=== PATIENT | female | born 1990 | race Hispanic/Latino ===

== ENCOUNTER 2016-11-06 13:13 | Inpatient (IN) | payer OTHER ==
[2016-11-06] MEDS ORDERED: LACTATED RINGERS 500 ML IV ONE (13:36)
--- NOTE | 2016-11-06 15:47 | History and Physical Report ---
History of Present Illness Date of examination: 11/06/16 Date of admission: 11/06/16 13:14 Chief complaint: my water broke History of present illness: 26 yo G1 at 35 wk 6d admitted with gross SROM at 1130and a few ctx. Followed with no problems in this except prior dx of Narcolepsy on Ritalin which she stopped taking in the first trimester. Known GBS neg, O pos, Rub Imm. She was doing a 24 hr urine for mildly elevated BP in the office and realized that she was leaking too much involuntary fluid. Remainder of H&P from [facility] and confirmed today. OB Intake Ethnicity: Scientology: NONE Occupation: [employer] Father of baby: Mahendra Mcneil FOB contact #: [phone] Vital Signs Height: 69.5 in. Weight (lb): 149 BMI: 21.7 BP: 122/ 70 mm Hg Ur. Protein: Negative Ur. Glucose: Negative Chief Complaint/Current Status: pt presents for missed period; c/o nausea..tward Last pap-02/2014 per pt...tward Menstrual History Regularity: regular Menses every: 28 days Duration: 5 LMP: 02/29/2016 LMP reliability: definite LMP character: normal test type: urine test Date: 04/28/2016 BC at conception: none Planned ? yes EDC Calculations LMP: 12/05/2016 EDC Confirmation: 12/05/2016 Gestational Age: 8 3/7 weeks Past History : 1 Para: 0 Past Medical History: Narcolepsy - taking Ritalin x3 years no seizures Migraines Sleep apnea Past Surgical History: Tonsillectomy - childhood Uvula removal - 2013 for sleep apnea Past Medical History Surgery (Non-cashier general): Tonsillectomy - childhood Uvula removal - 2013 for sleep apnea Abnormal PAP: negative MELISSA Exposure: negative Infertility: negative Uterine Anomaly: negative Uterine Surgery (not C/S): negative Other Gynecologic Problems: negative Family Hx: Type 2 DM - paternal grandfather Lung cancer - paternal grandmother Infection History Hx of STD: none HIV Risk Eval: low risk Hepatitis B Risk Eval: low risk Personal hx. of genital herpes: no Partner hx. of genital herpes: no Rash, Viral, or Febrile illness since last LMP? no Varicella/Chicken Pox Status: Previous Disease TB Risk: no Genetic History Congenital Heart Defect: Mom: no Dad: no Yodit Disease: Mom: no Dad: no Thalassemia Mom: no Dad: no Neural Tube Defect Mom: no Dad: no Down's Syndrome Mom: no Dad: no Macario-Sachs Mom: no Dad: no Sickle Cell Disease/Trait Mom: no Dad: no Hemophilia Mom: no Dad: no Muscular Dystrophy Mom: no Dad: no Cystic Fibrosis Mom: no Dad: no Mario Chorea Mom: no Dad: no Mental Retardation Mom: no Dad: no Fragile X Mom: no Dad: no Other Genetic/Chromosomal Disorder Mom: no Dad: no Child w/other defect Mom: no Dad: no Enviromental Exposures Xray Exposure: yes Medication, drug, or alcohol use since LMP: no Chemical/Other Exposure: yes Exposure to Cat Liter: yes Hx of Parvovirus (Fifth Disease): no Occupational Exposure to Children: none Comments: 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 Denies nausea, vomiting, headache, swelling of legs, abdominal pain, vaginal discharge, vaginal bleeding and contractions. Denies vaginal discharge, incontinence, dysuria, hematuria, urinary frequency, amenorrhea, menorrhagia, abnormal vaginal bleeding, pelvic pain, genital sores, decreased libido, painful periods, painful sex, urinary urgency, hot flashes, vaginal dryness, vaginal itching and vaginal odor. CV Denies chest pains, palpitations, syncope, dyspnea on exertion, orthopnea, PND and peripheral edema. Resp Denies cough, dyspnea at rest, excessive sputum, hemoptysis, wheezing and pleurisy. GI Denies nausea, vomiting, diarrhea, constipation, change in bowel habits, abdominal pain, melena, hematochezia, jaundice, gas/bloating, indigestion/ heartburn, dysphagia and odynophagia. Endo Denies cold intolerance, heat intolerance, polydipsia, polyphagia, polyuria and unusual weight change. Breast Denies left breast lump, right breast lump, nipple discharge, bloody discharge from nipple, breast pain, abnormal mammogram and breast enlargement. MS Denies back pain, joint pain, joint swelling, muscle cramps, muscle weakness, stiffness, arthritis, sciatica, restless legs, leg pain at night and leg pain with exertion. Derm Denies rash, itching, dryness and suspicious lesions. Neuro Denies paralysis, paresthesias, headache, seizures, tremors, vertigo, transient blindness, frequent falls, frequent headaches and difficulty walking. Psych Denies depression, anxiety, irritability and mood swings. Eyes Denies blurring, diplopia, irritation, discharge, vision loss, eye pain and photophobia. ENT Denies earache, ear discharge, tinnitus, decreased hearing, nasal congestion, nosebleeds, sore throat and hoarseness. Allergy Denies urticaria, allergic rash, hay fever and recurrent infections. Heme Denies abnormal bruising, bleeding and enlarged lymph nodes. PHYSICAL EXAM HEENT: PERRLA, normal conjunctiva, external nose and nasal mucosa normal, oropharynx clear Neck/Thyroid: supple, thyroid normal Skin no significant abnormal lesions or rashes Chest: respiratory effort normal, clear to auscultation Breasts: normal without skin changes or masses CV: regular, normal S1-S2, no murmur, no rub, no gallop Abdomen: normal bowel sounds, soft, nontender, no HSM Musculoskeletal: grossly normal ROM in joints, no joint tenderness or muscle weakness Neuro: grossly normal DTRs, sensation, strength, cranial nerves Extremities: no clubbing, cyanosis, or edema Flowsheet View for Follow-up Visit Estimated weeks of gestation: 8 10/04 Weight: 149 Blood pressure: 122 / 70 Urine protein: Negative Urine glucose: Negative Urine nitrite: negative Education Provided: 1) Education provided today and information packet given. 2) Education packet given; please call if you have any questions. 3) Review normal weight gain and proper nutrition during . 4) Advice on healthy diet for reviewed and information provided. 5) Stressed importance of taking folic acid and vitamins. 6) Advised to avoid intimate contact with cats, avoid cat litter, and the ingestion of raw meat. 7) Handout given on potential environmental and work hazards. 8) Patient Will deliver at [facility]. 9) Normal spontaneous vaginal delivery () anticipated at this time. 10) Influenza vaccine Recommended. Impression & Recommendations: Problem # 1: Other specified irregular menstruation ([id number]) Problem # 2: Narcolepsy with cataplexy (ICD-347.01) (SIG04-T49.411) Orders: Past History - Obstetrical History : 1 Medications and Allergies Allergies Allergy/AdvReac Type Severity Reaction Status Date / Time No Known Allergies Allergy Unverified 11/06/16 13:35 Active Meds: Active Medications Betamethasone Acet/Betameth SodPhos (Celestone Soluspan) 12 mg IM ONCE ONE Stop: 11/06/16 15:26 Butorphanol Tartrate (Stadol) 2 mg IV Q2H PRN PRN Reason: Pain , Severe (7-10) Ephedrine Sulfate (Ephedrine Sulfate) 10 mg IV Q2M PRN PRN Reason: Hypotension Stop: 11/06/16 15:23 Lactated Ringer's (Lactated Ringers) 1,000 mls @ 125 mls/hr IV DIRECT ANABEL Oxytocin/Sodium Chloride (Pitocin/Ns 20 Unit/1000ml Drip) 20 units in 1,000 mls @ 125 mls/hr IV DIRECT ANABEL Oxytocin/Sodium Chloride (Pitocin/Ns 30 Unit/500ml) 30 units in 500 mls @ 0 mls /hr IV TITR ANABEL; Per Protocol PRN Reason: Protocol Oxytocin/Sodium Chloride (Pitocin/Ns 30 Unit/500ml) 30 units in 500 mls @ 1 mls /hr IV TITR ANABEL; 1 MILLIUNITS/MIN PRN Reason: Protocol Lidocaine (Xylocaine 2%) 20 ml INFILTRATI ONCE ONE Stop: 11/06/16 15:19 Mineral Oil (Mineral Oil) 30 ml PO QHS PRN PRN Reason: Constipation Naloxone HCl (Narcan 0.4 Mg/1 Ml) 0.1 mg IV Q2MIN PRN PRN Reason: Res Rate </= 8 or 02 SAT < 92% Ondansetron HCl (Zofran) 4 mg IV Q8H PRN PRN Reason: Nausea And Vomiting Promethazine HCl (Phenergan) 25 mg AR Q6H PRN PRN Reason: N/V if unable to take po Terbutaline Sulfate (Brethine) 0.25 mg SUB-Q ONCE PRN PRN Reason: Hyperstimulation/Hypertonicity Stop: 11/06/16 15:19 Terbutaline Sulfate (Brethine) 0.25 mg IVP ONCE PRN PRN Reason: Hyperstimulation/Hypertonicity Stop: 11/06/16 15:19 - Vital Signs Vital signs: Vital Signs Pulse BP 81 148/93 11/06/16 14:21 11/06/16 14:21 Temp Pulse Resp BP Pulse Ox 89 146/86 94 11/06/16 15:19 11/06/16 14:52 11/06/16 15:19 Results Result Diagrams: 11/06/16 15:18 11/06/16 15:24 All other labs normal. Assessment and Plan - Patient Problems (1) premature rupture of membranes (PPROM) with onset of labor within 24 hours of rupture in third trimester, antepartum Onset Date: ~11/06/16 Current Visit: Yes Status: Acute
[2016-11-06] MEDS ORDERED: PHENERGAN PR PRN ×2 (16:00→19:58)
[2016-11-06] MEDS ORDERED: MINERAL OIL PO PRN (16:00)
[2016-11-06] MEDS ORDERED: BRETHINE IVP PRN (16:00)
[2016-11-06] MEDS ORDERED: XYLOCAINE 2% INFILTRATI ONE ×2 (16:00→19:24)
[2016-11-06] MEDS ORDERED: LACTATED RINGERS 1,000 ML IV SCH (16:00)
[2016-11-06] MEDS ORDERED: PITOCin/NS 30 UNIT/500ML 30 UNITS/500 ML BAG IV SCH ×2 (16:00)
[2016-11-06] MEDS ORDERED: ePHEDrine SULFATE IV PRN (16:00)
[2016-11-06] MEDS ORDERED: ZOFRAN IV PRN ×2 (16:00→19:58)
[2016-11-06] MEDS ORDERED: BRETHINE SUB-Q PRN (16:00)
[2016-11-06] MEDS ORDERED: PITOCin/NS 20 UNIT/1000ML DRIP 20 UNITS/1,000 ML BAG IV SCH (16:00)
[2016-11-06] MEDS ORDERED: CELESTONE SOLUSPAN IM ONE (16:00)
[2016-11-06] MEDS ORDERED: STADOL IV PRN (16:00)
[2016-11-06] MEDS ORDERED: NARCAN 0.4 MG/1 ML IV PRN (16:00)
[2016-11-06 16:51] LABS: Alanine Aminotransferase 16 units/L (7-56); Lactate Dehydrogenase 237 units/L (91-180); Uric Acid 5.3 mg/dL (3.5-7.6)
[2016-11-06 16:54] LABS: Hematocrit 37.5 % (30.3-42.9); Hemoglobin 12.3 gm/dl (10.1-14.3); Mean Corpuscular HGB Conc 33 % (30-34); Mean Corpuscular Hemoglobin 29 pg (28-32); Mean Corpuscular Volume 90 fl (79-97); Platelet Count 272 K/mm3 (140-440); Red Blood Count 4.18 M/mm3 (3.65-5.03); Red Cell Distribution Width 14.5 % (13.2-15.2); White Blood Count 16.1 K/mm3 (4.5-11.0)
[2016-11-06 17:05] LABS: Bacteria,Urine 2+ /HPF (Negative); Bilirubin,Urine NEG (Negative); Blood,Urine NEG (Negative); Ketones,Urine 20 mg/dL (Negative); Leukocyte Esterase,Urine NEG (Negative); Mucus,Urine 1+ /HPF; Nitrite,Urine NEG (Negative); Urobilinogen,Urine < 2.0 mg/dL (<2.0)
--- NOTE | 2016-11-06 19:57 | Procedure Note ---
OB Delivery Note - Delivery Date of Delivery: 11/06/16 Surgeon: GUDELIA ORLANDO Estimated blood loss: 300cc - Vaginal Delivery presentation: vertex Delivery position: OA Intrapartum events: labor-<37 weeks, PROM->1hr before delivery (PPROM at 35 + 6) Delivery induction: none Delivery monitor: external FHT, external uterine Route of delivery: Delivery placenta: spontaneous Delivery cord: nuchal cord Episiotomy: midline (second degree lac) Delivery repair: vicryl Anesthesia: local - Infant A at 1 minute: 7 at 5 minutes: 8 Gender: Male (5# 13oz)
[2016-11-06] MEDS ORDERED: DULCOLAX PR PRN (19:58)
[2016-11-06] MEDS ORDERED: TYLENOL PO PRN (19:58)
[2016-11-06] MEDS ORDERED: MILK OF MAGNESIA PO PRN (19:58)
[2016-11-06] MEDS ORDERED: LANSINOH TP PRN (19:58)
[2016-11-06] MEDS ORDERED: BENADRYL PO PRN (19:58)
[2016-11-06] MEDS ORDERED: PHENERGAN PO PRN (19:58)
[2016-11-06] MEDS ORDERED: NORCO 5/325 PO PRN (19:58)
[2016-11-06] MEDS ORDERED: TUCKS PAD TP PRN (19:58)
[2016-11-06] MEDS ORDERED: DERMOPLAST TP PRN (19:58)
[2016-11-06] MEDS ORDERED: SODIUM CHLORIDE FLUSH SYRINGE 10 ML IV NR (20:00)
[2016-11-06] MEDS: MOTRIN PO SCH (20:36)
[2016-11-07] MEDS: MOTRIN PO SCH ×3 (01:47→16:05)
[2016-11-07] MEDS ORDERED: BOOSTRIX IM ONE (06:00)
--- NOTE | 2016-11-07 06:44 | Progress Note ---
Assessment and Plan - Patient Problems (1) Spontaneous vaginal delivery Onset Date: ~11/06/16 Current Visit: Yes Status: Acute Plan to address problem: Pt w/o complaint BP 140/80 otherwise wnl FF below umb Lochia small Perineum slight swelling intact H&H to be drawn @ 0800 No sx of anemia noted. Doing well s/p vag del Elevated BP P: continue pathway Monitor BPs Subjective - Subjective Date of service: 11/07/16 (pt w/o complaint) Patient reports: appetite normal, voiding normally, pain well controlled, ambulating normally : doing well Objective - Vital Signs Latest vital signs: Vital Signs Temp Pulse Pulse Resp BP BP Pulse Ox 11/07/16 04:00 98.6 F 77 16 144/82 11/07/16 00:00 98.6 F 77 16 147/80 11/06/16 21:30 98.6 F 88 16 146/89 11/06/16 20:49 95 H 136/87 11/06/16 20:41 103 H 146/72 11/06/16 20:36 18 11/06/16 20:25 96 H 137/79 11/06/16 20:10 114 H 147/84 11/06/16 20:07 116 H 141/81 11/06/16 20:01 113 H 170/84 11/06/16 19:55 105 H 163/89 11/06/16 19:44 98.5 F 22 11/06/16 19:42 121 H 176/103 11/06/16 19:40 116 H 173/92 11/06/16 18:11 99 H 138/78 11/06/16 16:57 78 130/72 11/06/16 15:47 98.1 F 18 11/06/16 15:23 89 97 11/06/16 15:19 89 94 11/06/16 15:18 83 97 11/06/16 14:52 75 146/86 11/06/16 14:42 82 186/94 11/06/16 14:21 81 148/93 Intake and Output 11/06/16 11/06/16 11/07/16 14:59 22:59 06:59 Intake Total 425 500 Output Total 1350 Balance 425 -850 Intake: IV 425 500 PITOCin/NS 20 UNIT/1000ML 425 500 DRIP 20 units In 1,000 ml @ 125 mls/hr IV DIRECT ANABEL Rx#:[id number] Output: Urine 1350 Void 1350 Other: Total, Output Amount 600 # Voids Void 1 Weight 182 lb 182 lb Estimated Blood Loss 300 Patient Weight 11/07/16 06:59 Weight 182 lb - Exam Breasts: Present: Cardiovascular: Present: Regular rate Lungs: Present: Normal air movement Abdomen: Present: normal appearance, soft Uterus: Present: normal, fundal height below umbilicus Extremities: Present: edema Deep Tendon Reflex Grade: Normal +2 Incision: Present: dry, intact - Labs Labs: Abnormal lab results 11/06/16 11/06/16 Range/Units 15:18 15:24 WBC 16.1 H (4.5-11.0) K/mm3 Creatinine 0.5 L (0.7-1.2) mg/dL Lactate Dehydrogenase 237 H (91-180) units/L
[2016-11-07 08:03] LABS: Hematocrit 33.1 % (30.3-42.9); Hemoglobin 10.9 gm/dl (10.1-14.3)
[2016-11-08] MEDS: MOTRIN PO SCH ×4 (04:46→13:50)
--- NOTE | 2016-11-08 07:48 | Progress Note ---
Assessment and Plan Patient doing well, c/o some pain at episiotomy site but well controlled with comfort measures and medication PRN. Patient verbalizes concern over infant needing to remain in house under bili lights and exclusive . b/p's 120-140/70-80's. Pt denies [place], visual changes or epigastric pain. H&H stable. Plan to continue monitoring b/p today with d/c if is discharged home. Patient verbalizes agreement and understanding of plan of care. - Patient Problems (1) Spontaneous vaginal delivery Onset Date: ~11/06/16 Current Visit: Yes Status: Acute Subjective - Subjective Date of service: 11/08/16 Principal diagnosis: day #2 s/p Patient reports: appetite normal, voiding normally, pain well controlled, ambulating normally, no dizzy ambulation, no nauseated : doing well (under bili lights in room), nursing well Objective - Vital Signs Latest vital signs: Vital Signs Temp Pulse Resp BP 11/08/16 02:25 98.5 F 95 H 18 129/74 11/07/16 15:00 98.2 F 89 20 145/89 11/07/16 08:00 98.2 F 87 20 137/79 Intake and Output 11/07/16 11/08/16 11/08/16 22:59 06:59 14:59 Intake Total 360 360 Balance 360 360 Intake: Oral 360 Intake, Free Water 360 Other: Total, Intake Amount 240 # Voids Void 1 1 - Exam Breasts: Present: normal, Cardiovascular: Present: Regular rate Lungs: Present: Clear to auscultation, Normal air movement Abdomen: Present: normal appearance, soft Vulva: both: laceration/episiotomy Uterus: Present: normal, firm, fundal height at umbilicus Extremities: Present: normal Deep Tendon Reflex Grade: Normal +2 Incision: Present: normal, dry, intact
--- NOTE | 2016-11-08 20:06 | Event Note ---
Date: 11/08/16 Patient will remain in hospital one more night to monitor b/p elevations and d /c in AM. infant has not yet been cleared for discharge.
[2016-11-09] MEDS: MOTRIN PO SCH (00:20)
--- NOTE | 2016-11-09 06:42 | Discharge Summary ---
Providers - Providers Date of Admission: 11/06/16 13:14 Date of discharge: 11/09/16 (pt agrees with d/c ) Attending physician: GUDELIA ORLANDO 11/06/16 20:00 Consult to National Account Director [CONS] Routine Reason For Exam: assistance with , SNS Primary care physician: GUDELIA ORLANDO Hospitalization Reason for admission: IUP - , rupture of membranes Delivery: Episiotomy: midline Laceration: 2nd degree Incision: dry, intact Other procedures: none complications: other (mildly elevated BPs; observation) Discharge diagnosis: delivery [place] baby: male (elevated cheko) Hospital course: uncomplicated vaginal delivery male Pt w/o complaint Agrees with d/c VSS BP 120/70 FF below umb Lochia small Perineum slight swelling intact Pt has no s/sx of anemia Doing well s/p vag delivery. P: d/c home today with instruction F/U in office one week for son's circ and pt to have BP check. Condition at discharge: Good Disposition: DISCHARGED TO HOME OR SELFCARE - Discharge Diagnoses (1) Spontaneous vaginal delivery Status: Acute Comment: f/u one week BP check PP visit 4 weeks Plan - Discharge Medications Prescriptions: Ibuprofen [Motrin 600 MG tab] 600 mg PO Q8H PRN #30 tablet PRN Reason: Pain Lidocain2.5%/Prilocai2.5% [Emla] 5 gm TP 1XW #1 tube - Provider Discharge Summary Activity: routine, no sex for 6 weeks, no heavy lifting 4 weeks, no strenuous exercise Diet: routine Instructions: routine Additional instructions: [] Smoking cessation referral if applicable(refer to patient education folder for contact #) [] Refer to [facility] Booklet Call your doctor immediately for: * Fever > 100.5 * Heavy vaginal bleeding ( >1 pad per hour) * Severe persistent headache * Shortness of breath * Reddened, hot, painful area to leg or breast * Drainage or odor from incision. * Keep incision clean and dry at all times and follow doctor's instructions regarding bathing/showering - Follow up plan Follow up: GUDELIA ORLANDO MD [Primary Care Provider] - 7 Days (Congratulations! Please call [phone] to schedule your blood pressure check and your son's circumcision in 1 week. Bring the EMLA cream with you to his visit. Call with headache, unrelieved with Tylenol, blurred vision, chest pain. Call with any concerns. )
[2016-11-09 17:11] VITALS: BP 138/89
== END 2016-11-09 23:00 | disposition home or self-care (01) | DRG 775 ==
LOC: TRG 13:13 → LD 13:14 → TRG 13:14 → OB 21:19
PROVIDERS: ADMIT Obstetrics & Gynecology; ATTEND Obstetrics & Gynecology
PROC: 0W8NXZZ Division of Female Perineum, External Approach (ICD-10-PCS; principal; 2016-11-06)
PROC: 0KQM0ZZ Repair Perineum Muscle, Open Approach (ICD-10-PCS; principal; 2016-11-06)
PROC: 10E0XZZ Delivery of Products of Conception, External Approach (ICD-10-PCS; principal; 2016-11-06)
DX: O60.14X0 Preterm labor third trimester with preterm delivery third trimester, not applicable or unspecified (principal); O69.81X0 Labor and delivery complicated by cord around neck, without compression, not applicable or unspecified; O42.013 Preterm premature rupture of membranes, onset of labor within 24 hours of rupture, third trimester; O70.1 Second degree perineal laceration during delivery; Z3A.35 35 weeks gestation of pregnancy; Z37.0 Single live birth
CPT/HCPCS: 36415; 81001; 82565; 83615; 84450; 84460; 84550; 85014; 85018; 85027; 86592; 86850; 86900; 86901; 99211; A6250; G0463; J0702; J2590; J7120